=== PATIENT | female | born 1970 | race Caucasian/White ===

== ENCOUNTER → 2018-08-14 | Outpatient (CLI) | payer BC, OTHER ==
[~2018-08-14] MED LIST: APAP500 PO; DERMOPLAST SPRA56 ML; HYDROCORTISONE; IBUPROFEN 800800 M1 PO; LANOLIN56 GM; PRENATAL PO; TUCKS MEDICATE1 EAC1
== END ==
LOC: RAD 11:12
DX: Z12.31 Encounter for screening mammogram for malignant neoplasm of breast (principal)

== ENCOUNTER → 2019-09-19 | Outpatient (CLI) | payer BC, OTHER | LOC: RAD 11:17 | DX: Z12.31 Encounter for screening mammogram for malignant neoplasm of breast (principal) ==

== ENCOUNTER → 2021-03-13 | Outpatient (CLI) | payer BC, OTHER | LOC: RAD 11:15 | PROVIDERS: ATTEND Obstetrics & Gynecology | DX: Z12.31 Encounter for screening mammogram for malignant neoplasm of breast (principal) ==

== ENCOUNTER 2021-10-21 11:31 | Observation (INO) | payer BC, OTHER ==
[~2021-10-21] VITALS: Ht 157.5 cm; Wt 70.8 kg
[2021-10-21 11:38] VITALS: BP 157/105
[2021-10-21 12:16] LABS: URINE BILIRUBIN NEGATIVE (Negative); URINE BLOOD 3+ (Negative); URINE CLARITY SL CLOUDY; URINE COLOR YELLOW; URINE GLUCOSE-RANDOM* NEGATIVE (Negative); URINE KETONES NEGATIVE (Negative); URINE LEUKOCYTES-REFLEX 1+ (Negative); URINE NITRITE-REFLEX NEGATIVE (Negative); URINE PROTEIN (DIPSTICK) TRACE (Negative); URINE SPECIFIC GRAVITY >= 1.030 (1.005-1.035); URINE UROBILINOGEN 0.2 E.U./dl (0.2-1.0)
[2021-10-21 12:37] LABS: ABSOLUTE NEUTROPHILS 14.5 thou/uL (1.4-8.2); BASOPHILS 0.4 % (0.0-2.0); EOSINOPHILS 0.1 % (0.0-3.0); HEMATOCRIT 46.4 % (37.0-47.0); HEMOGLOBIN 15.6 gm/dL (12.0-15.0); LYMPHOCYTES 6.9 % (24.0-44.0); MCH 28.9 pg (26.0-34.0); MCHC 33.7 g/dL (28.0-37.0); MCV 85.7 fL (80.0-100.0); MONOCYTES 3.1 % (1.0-8.0); PLATELET COUNT 360 thou/uL (150-400); POLYS 89.5 % (36.0-66.0); RBC 5.41 mil/uL (4.20-5.00); RDW 15.7 % (10.5-14.5); WBC 16.2 thou/uL (4.0-11.0)
[2021-10-21 12:40] LABS: CASTS None Seen /LPF (None Seen); MUCUS >6 Heavy strn/LPF (None Seen); SQUAMOUS 0-3 Few /LPF (0-3)
[2021-10-21 12:41] LABS: BACTERIA-REFLEX 1-9 Few /HPF (None Seen); CRYSTALS None Seen /LPF (None Seen); URINE WBC-REFLEX 6-15 Few /HPF (0-5)
[2021-10-21 12:44] LABS: CALCIUM 10.1 mg/dL (8.5-10.1); CREATININE 1.1 mg/dL (0.6-1.0); POTASSIUM 3.9 mmol/L (3.5-5.1)
[2021-10-21 12:50] LABS: ALBUMIN 4.1 g/dL (3.4-5.0); TOTAL BILIRUBIN 0.4 mg/dL (0.2-1.0); TOTAL PROTEIN 8.8 g/dL (6.4-8.2)
[2021-10-21 15:35] VITALS: BP 144/89
--- NOTE | 2021-10-21 15:35 | NUR ---
PT TAKEN TO PREOP AT THIS TIME
[2021-10-21 19:20] VITALS: BP 138/80
--- NOTE | 2021-10-21 22:27 | O ---
[facility] [place] [address] OPERATIVE REPORT Name: PIO KIMBALL Room #: 437-P [facility] IN M.R.#: [id number] Admission: 10/21/21 Attend Phys: Mary Welch MD Discharge: Date of : 74 Report #: [id number] THIS REPORT FOR: cc: Rosalba Aldridge MD, Courtney A. MD Park, Gerald Y. MD ~ DATE OF SERVICE: 10/21/2021 PREOPERATIVE DIAGNOSES: Left kidney stone, urinary tract infection. POSTOPERATIVE DIAGNOSES: Left kidney stone, urinary tract infection. PROCEDURE: Cystoscopy, left retrograde pyelogram, left stent placement (6 x 26). SURGEON: Trevor Neff MD ANESTHETIC: General. ESTIMATED BLOOD LOSS: None. COMPLICATIONS: None. INDICATIONS: This is a 51-year-old female with a left stone and a UTI. Has hydronephrosis. CT shows 5 mm proximal stone. [place] best to place a stent and treat her with antibiotics and that her infection would clear. Risks and complications explained. Wants to proceed. FINDINGS: Left mild hydronephrosis. A 6 x 26 stent. Second staged ureteroscopy will be needed. DESCRIPTION OF PROCEDURE: After informed consent was obtained, the patient was taken to the operative suite where she was placed in the dorsal lithotomy position under general anesthetic. The area of genitalia was prepped and draped in standard fashion. A 21-Maori rigid scope was placed per urethra into the bladder. Bladder was grossly unremarkable. Left UO was identified and a wire was placed up it without difficulty. The wire up in the kidney, a ureteral catheter was placed over it into the kidney. A retrograde was done that showed mild hydronephrosis. The ureter measured out about 26 cm. Wire was left in place and over the wire, a 6 x 26 stent was placed. She had good curl up in the kidney down the bladder. Bladder was drained, scope was withdrawn. The patient tolerated the procedure well, sent to recovery in stable condition. [address] [address] OPERATIVE REPORT Name: PIO KIMBALL Room #: 437-P [facility] IN [facility]#: [id number] Admission: 10/21/21 Attend Phys: Mary Welch MD Discharge: Date of : 74 Report #: [id number] We will set her up for staged ureteroscopy after her infection is cleared. <ELECTRONICALLY SIGNED> By: Trevor Neff MD 10/21/21 [id number] 180 Trevor Neff MD /nt
--- NOTE | 2021-10-22 01:41 | NUR ---
PT ADMITTED TO THE UNIT FROM THE OR AT AROUND 2000HRS. SHE IS ALERT AND ORIENTED X 4. PT BEEN TO THE BATHROOM AND SHE IS VOIDING WITHOUT ANY DIFFICULTY.AFEBRILE. ROOM AIR.SR/SB ON TELEMETRY. NORCO GIVEN FOR PAIN WITH RELIEF. EATING REGULAR DIET-DENIES ANY NAUSEA OR VOMITING.CALLS WITH NEEDS.
[2021-10-22 04:03] VITALS: BP 129/75
[2021-10-22 06:16] LABS: HEMATOCRIT 42.5 % (37.0-47.0); HEMOGLOBIN 13.9 gm/dL (12.0-15.0); MCH 28.5 pg (26.0-34.0); MCHC 32.7 g/dL (28.0-37.0); MCV 87.1 fL (80.0-100.0); RBC 4.88 mil/uL (4.20-5.00); RDW 16.1 % (10.5-14.5); WBC 10.9 thou/uL (4.0-11.0)
[2021-10-22 06:33] LABS: CALCIUM 9.5 mg/dL (8.5-10.1); CREATININE 1.1 mg/dL (0.6-1.0); POTASSIUM 4.3 mmol/L (3.5-5.1)
[2021-10-22] MEDS ORDERED: KEFLEX250 MG PO (07:51)
[2021-10-22 08:00] VITALS: BP 119/70
[2021-10-22 10:28] VITALS: BP 119/70
--- NOTE | 2021-10-22 11:00 | NUR ---
A/O X 4. ROOM AIR.STAND BY. LEFT 20 G AC WITH NS INFUSING @ 126 MLS/HR. SLIGHT BURNING WITH URINATION AND URINE IS BLOOD TINGED. BILATERAL LEG SCDS ON IN BED. TOLERATING ROCEPHIN WELL. SR ON TELE. PAGED DR. DAS @ 0579 TO SEE IF HE NEEDS TO COME AND SEE HER OR CAN SHE D/C, DR. MOSS SIGNED OFF. AWAITING CALL BACK. HAVING LEFT FLANK PAIN. NORCO GIVEN PRN.
[2021-10-22 11:34] VITALS: BP 128/74
== END 2021-10-22 15:54 | disposition home or self-care (01) ==
LOC: ER 11:31 → EROBS 14:16 → 4S 14:16
PROVIDERS: Physician Assistant; ADMIT Internal Medicine; ATTEND Internal Medicine
DX: N13.30 Unspecified hydronephrosis (principal); N20.0 Calculus of kidney; N39.0 Urinary tract infection, site not specified; Z20.822 Contact with and (suspected) exposure to COVID-19; Z79.899 Other long term (current) drug therapy
CPT/HCPCS: 10100; 50010; 50101; 51620; 51767; 56674; 56815; 57160; 58565; 62110; 62900; 70005